=== PATIENT | female | born 1955 | race Caucasian/White ===

== ENCOUNTER → 2016-07-14 | Outpatient (CLI) | payer OTHER, BC ==
[~2016-07-14] MED LIST: CALCIUM 600 +1 EAC4 PO; FISH OIL 1,0001 EA11 PO; FLONASE16 G1 BOTH NARES; HYDROCHLOROTHIA25 MG PO; LEXAPRO10 MG PO; SINGULAIR10 MG PO; SYNTHROID50 MCG PO; VITAMIN D-32000 UNI1 PO
== END | disposition home or self-care (01) ==
LOC: CDC 15:50
DX: Z01.810 Encounter for preprocedural cardiovascular examination (principal)
CPT/HCPCS: 93000

== ENCOUNTER 2016-07-22 05:37 | Inpatient (IN) | payer OTHER, BC ==
[~2016-07-22] VITALS: Ht 160 cm; Wt 63.5 kg
[2016-07-22 06:10] VITALS: BP 131/90
[2016-07-22 06:15] VITALS: BP 131/90
[2016-07-22 15:00] VITALS: BP 112/66
[2016-07-22 19:20] VITALS: BP 117/67
[2016-07-22 23:32] VITALS: BP 106/61
[2016-07-23 03:50] VITALS: BP 112/65
[2016-07-23 07:30] LABS: EOSINOPHIL (%) 0.2 % (0-5); HEMATOCRIT 35.4 % (36.0-46.0); IMMATURE GRANULOCYTE (%) 0.4 % (0.0-0.7); INSTRUMENT ABS NEUTROPHIL CT 7.1 K/uL; LYMPHOCYTE COUNT 1.9 K/uL (1.0-2.8); MCH 30.5 PG (29.0-34.0); MCHC 33.1 G/DL (30.0-36.0); MCV 92.2 FL (83-99); MEAN PLAT.VOLUME 10.5 uM^3 (9.5-12.4); MONOCYTE (%) 9.6 % (3-12); NEUTROPHIL COUNT 7.1 K/uL (1.8-6.4); PLATELET COUNT 219 K/uL (156-360); RBC DIS.WIDTH-CV 13.6 % (11.8-14.6); RBC DIS.WIDTH-SD 45.9 % (39-53); RED BLOOD COUNT 3.84 M/uL (3.80-5.20)
[2016-07-23 07:35] LABS: ANION GAP 4 MEQ/L (2-14); CHLORIDE 105 MEQ/L (99-109); GFR ESTIMATE (CALCULATED) > 59 mL/min/; GLUCOSE 97 mg/dL (70-99); POTASSIUM 3.8 MEQ/L (3.7-5.4); SAMPLE HEMOLYSIS CHECK 0; SAMPLE ICTERIC CHECK 0; SAMPLE LIPEMIA CHECK 0; SODIUM 138 MEQ/L (136-147); UREA NITROGEN (BUN) 11 mg/dL (9-23)
[2016-07-23 07:45] VITALS: BP 114/67
[2016-07-23 11:59] VITALS: BP 107/58
[2016-07-23 16:23] VITALS: BP 118/58
[2016-07-23 20:19] VITALS: BP 123/68
[2016-07-23 23:45] VITALS: BP 90/53
[2016-07-24 03:45] VITALS: BP 99/57
[2016-07-24 06:49] LABS: EOSINOPHIL (%) 0.9 % (0-5); EOSINOPHIL COUNT 0.1 K/uL (0-0.3); HEMATOCRIT 36.4 % (36.0-46.0); IMMATURE GRANULOCYTE (%) 0.3 % (0.0-0.7); INSTRUMENT ABS NEUTROPHIL CT 6.2 K/uL; LYMPHOCYTE COUNT 1.6 K/uL (1.0-2.8); MCH 30.4 PG (29.0-34.0); MCHC 32.7 G/DL (30.0-36.0); MCV 93.1 FL (83-99); MEAN PLAT.VOLUME 10.1 uM^3 (9.5-12.4); MONOCYTE (%) 9.5 % (3-12); MONOCYTE COUNT 0.8 K/uL (0-0.8); NEUTROPHIL (%) 70.7 % (45-76); NEUTROPHIL COUNT 6.2 K/uL (1.8-6.4); PLATELET COUNT 199 K/uL (156-360); RBC DIS.WIDTH-CV 13.6 % (11.8-14.6); RBC DIS.WIDTH-SD 46.6 % (39-53); RED BLOOD COUNT 3.91 M/uL (3.80-5.20); WHITE BLOOD COUNT 8.8 K/uL (4.1-10.2)
[2016-07-24 07:03] LABS: ANION GAP 5 MEQ/L (2-14); CHLORIDE 108 MEQ/L (99-109); GFR ESTIMATE (CALCULATED) > 59 mL/min/; GLUCOSE 93 mg/dL (70-99); POTASSIUM 3.8 MEQ/L (3.7-5.4); SAMPLE HEMOLYSIS CHECK 0; SAMPLE ICTERIC CHECK 0; SAMPLE LIPEMIA CHECK 0; SODIUM 142 MEQ/L (136-147); UREA NITROGEN (BUN) 10 mg/dL (9-23)
[2016-07-24 07:30] VITALS: BP 129/70
[2016-07-24 09:43] VITALS: BP 118/67
== END 2016-07-24 16:13 | disposition home or self-care (01) | DRG 743 ==
LOC: 2SOUTH → 2EAST 05:37 → 2SOUTH 09:23 → 2EAST 14:51
PROVIDERS: Obstetrics & Gynecology Gynecology
DX: N99.3 Prolapse of vaginal vault after hysterectomy (principal); N99.2 Postprocedural adhesions of vagina; N32.89 Other specified disorders of bladder; E03.9 Hypothyroidism, unspecified; Z90.710 Acquired absence of both cervix and uterus
CPT/HCPCS: 80048; 85025; 87086; 88304; 88305; C1781; J0131; J0690; J1100; J1170; J1650; J1885; J2250; J2405; J2710; J3010; J7120

== ENCOUNTER → 2017-03-17 | Day surgery (SDC) | payer OTHER, BC ==
[~2017-03-17] VITALS: Ht 160 cm; Wt 63.6 kg
[2017-03-17 09:35] VITALS: BP 128/77
== END | disposition home or self-care (01) ==
LOC: SDC 09:00
DX: N39.3 Stress incontinence (female) (male) (principal); R00.1 Bradycardia, unspecified; Z53.8 Procedure and treatment not carried out for other reasons
CPT/HCPCS: 93005; J0690

== ENCOUNTER 2017-04-28 05:27 | Day surgery (SDC) | payer OTHER, BC ==
[~2017-04-28] VITALS: Ht 160 cm; Wt 63.6 kg
[2017-04-28 06:02] VITALS: BP 135/73
[2017-04-28 10:00] VITALS: BP 123/68
[2017-04-28 10:50] VITALS: BP 132/63
[2017-04-28 13:08] VITALS: BP 112/60
[2017-04-28 17:11] VITALS: BP 156/82
[2017-04-28 19:43] VITALS: BP 131/74
== END 2017-04-28 19:48 | disposition home or self-care (01) ==
LOC: SDC 05:27
PROC: 0TSD4ZZ Reposition Urethra, Percutaneous Endoscopic Approach (ICD-10-PCS; principal; 2017-04-28)
PROC: 0TJB8ZZ Inspection of Bladder, Via Natural or Artificial Opening Endoscopic (ICD-10-PCS; principal; 2017-04-28)
DX: N39.3 Stress incontinence (female) (male) (principal); K40.90 Unilateral inguinal hernia, without obstruction or gangrene, not specified as recurrent; K42.9 Umbilical hernia without obstruction or gangrene
CPT/HCPCS: 87086; J0131; J0690; J1100; J1885; J2250; J2405; J3010; J7120